=== PATIENT | male | born 1950 | race Caucasian/White ===

== ENCOUNTER 2018-06-15 23:26 | Emergency (ER) | payer MEDICARE ==
[~2018-06-15] VITALS: Ht 172.7 cm; Wt 73.5 kg
[2018-06-16] MEDS ORDERED: ONDANSETRON 4 MG/2 ML (SDV) Z0FRAN IVP ONE (00:15)
[2018-06-16] MEDS ORDERED: NS IV 1000 ML 1,000 ML IV SCH (00:15)
--- NOTE | 2018-06-16 00:27 | ED GI ---
General Chief Complaint: Abdominal/GI Problems Stated Complaint: VOMITING X2 HRS,SINUS INF Nursing Triage Note: pt states he has had a sinus infection for the past month, went to the dr today and placed on augmentin and prednisone. pt started vomiting this evening and has had approximately 10 episodes Sepsis Screen: No Definite Risk Source of Information: Patient Exam Limitations: No Limitations History of Present Illness Date Seen by Provider: Jun 16, 2018 Time Seen by Provider: 00:25 Initial Comments Sick for the past month cough and sinus drainage. Primary care physician prescribed Augmentin and prednisone today. He took one Augmentin tonight. then started vomiting. Has vomited 10 times. Stools are loose. Complains of crampy epigastric pain. No fevers or chills. History of low sodium. Allergies and Home Medications Allergies Coded Allergies: Sulfa (Sulfonamide Antibiotics) (Verified Allergy, Unknown, tachycardia, ) codeine (Verified Allergy, Unknown, tachycardia, 06/15/18) Home Medications Loratadine 10 Mg Tab, DAILY, (Reported) Patient Home Medication List Home Medication List Reviewed: Yes Review of Systems Review of Systems Constitutional: No fever; malaise, weakness Respiratory: No Symptoms Reported Cardiovascular: No Symptoms Reported Gastrointestinal: Abdominal Pain; Denies Diarrhea; Nausea, Vomiting Genitourinary: No Symptoms Reported Musculoskeletal: no symptoms reported, muscle pain Psychiatric/Neurological: Weakness All Other Systems Reviewed Negative Unless Noted: Yes Past Oyvxscz-Ufqero-Mavauw Hx Patient Social History Alcohol Use: Denies Use Smoking Status: Never a Smoker Recent Foreign Travel: No Contact w/Someone Who Travel: No Recent Infectious Disease Expo: No Physical Exam Vital Signs Vital Signs - First Documented 06/15/18 23:52 Temp 98.1 Pulse 99 Resp 16 B/P (MAP) 190/83 (118) Pulse Ox 97 Capillary Refill : Less Than 3 Seconds Height/Weight/BMI Height: 5'8.00" Weight: 162lbs. oz. 73.872978rm; BMI Method:Stated General Appearance: WD/WN, no apparent distress HEENT: PERRL/EOMI, pharynx normal Neck: supple Respiratory: lungs clear, normal breath sounds Cardiovascular: regular rate, rhythm, no edema, no gallop Gastrointestinal: non tender, soft Extremities: normal inspection Neurologic/Psychiatric: alert, normal mood/affect Skin: normal color, warm/dry Progress/Results/Core Measures Results/Orders Lab Results Laboratory Tests Test 06/15/18 00:30 Range/Units White Blood Count 16.3 H 4.3-11.0 10^3/uL Red Blood Count 4.09 L 4.35-5.85 10^6/uL Hemoglobin 12.7 L 13.3-17.7 G/DL Hematocrit 37 L 40-54 % Mean Corpuscular Volume 91 80-99 FL Mean Corpuscular Hemoglobin 31 25-34 PG Mean Corpuscular Hemoglobin Concent 34 32-36 G/DL Red Cell Distribution Width 12.8 10.0-14.5 % Platelet Count 282 130-400 10^3/uL Mean Platelet Volume 10.7 H 7.4-10.4 FL Neutrophils (%) (Auto) 86 H 42-75 % Lymphocytes (%) (Auto) 5 L 12-44 % Monocytes (%) (Auto) 7 0-12 % Eosinophils (%) (Auto) 1 0-10 % Basophils (%) (Auto) 0 0-10 % Neutrophils # (Auto) 14.0 H 1.8-7.8 X 10^3 Lymphocytes # (Auto) 0.8 L 1.0-4.0 X 10^3 Monocytes # (Auto) 1.2 H 0.0-1.0 X 10^3 Eosinophils # (Auto) 0.2 0.0-0.3 10^3/uL Basophils # (Auto) 0.1 0.0-0.1 10^3/uL Neutrophils % (Manual) 88 % Lymphocytes % (Manual) 4 % Monocytes % (Manual) 4 % Eosinophils % (Manual) 0 % Basophils % (Manual) 0 % Band Neutrophils 4 % Sodium Level 127 L 135-145 MMOL/L Potassium Level 3.5 L 3.6-5.0 MMOL/L Chloride Level 89 L 98-107 MMOL/L Carbon Dioxide Level 19 L 21-32 MMOL/L Anion Gap 19 H 5-14 MMOL/L Blood Urea Nitrogen 17 7-18 MG/DL Creatinine 0.85 0.60-1.30 MG/DL Estimat Glomerular Filtration Rate > 60 BUN/Creatinine Ratio 20 Glucose Level 134 H 70-105 MG/DL Calcium Level 8.4 L 8.5-10.1 MG/DL Corrected Calcium 8.2 L 8.5-10.1 MG/DL Total Bilirubin 0.5 0.1-1.0 MG/DL Aspartate Amino Transf (AST/SGOT) 16 5-34 U/L Alanine Aminotransferase (ALT/SGPT) 11 0-55 U/L Alkaline Phosphatase 55 40-136 U/L Total Protein 7.1 6.4-8.2 GM/DL Albumin 4.3 3.2-4.5 GM/DL Lipase 30 8-78 U/L My Orders Orders - ISIDRO JONES MD Comprehensive Metabolic Panel (06/15/18 23:56) Lipase (06/15/18 23:56) Saline Lock/Iv-Start (06/15/18 23:56) Acute Abd Series (06/15/18 23:56) Cbc With Automated Diff (06/15/18 23:56) Ns Iv 1000 Ml (Sodium Chloride 0.9%) (06/16/18 00:15) Ondansetron Injection (Zofran Injectio (06/16/18 00:15) Manual Differential (06/15/18 00:30) Medications Given in ED Current Medications Medications Dose Ordered Sig/Trace Route Start Time Stop Time Status Last Admin Dose Admin Ondansetron HCl 4 mg ONCE ONCE IVP 06/16/18 00:15 06/16/18 00:16 DC 06/16/18 00:33 4 MG Vital Signs/I&O 06/15/18 23:52 Temp 98.1 Pulse 99 Resp 16 B/P (MAP) 190/83 (118) Pulse Ox 97 Blood Pressure Mean: 118 Progress Progress Note : Time: 01:22 Progress Note She feels much better after IV fluids. Sodium was decreased but not critically. He has a elevated left hemidiaphragm on x-ray. I asked him about this and he does not recall her being told this before. He is not complaining of shortness of breath or abdominal pain now. I sent to follow-up with primary care physician for further workup on this. He is concerned about continuing Augmentin as he believes it made him ill. We will discontinue the Augmentin and start Zithromax. Advised to drink plenty of fluids, not water and see his doctor early next week Departure Impression Primary Impression: Nausea and vomiting Additional Impressions: Hyponatremia Sinusitis Disposition: HOME, SELF-CARE Condition: Stable Departure-Patient Inst. Decision time for Depature: 01:24 Referrals: NO,LOCAL PHYSICIAN (PCP/Family) Primary Care Physician Patient Instructions: Nausea and Vomiting, Adult Add. Discharge Instructions: Drink plenty of fluids. Stop Augmentin. Start Zithromax. you Were given the first dose in the emergency department. All discharge instructions reviewed with patient and/or family. Voiced understanding. Scripts Azithromycin (Zithromax) 250 Mg Tablet 250 MG PO DAILY, #4 TAB Prov: ISIDRO JONES MD 06/16/18 ISIDRO JONES MD Jun 16, 2018 00:27
[2018-06-16 00:30] VITALS: BP 178/79
[2018-06-16] MEDS ORDERED: AMOX-CLAV 875-125 MG TABLET (00:52)
[2018-06-16] MEDS ORDERED: LUMIGAN 0.01% EYE DROPS (00:52)
[2018-06-16] MEDS ORDERED: PREDNISONE 20 MG TABLET (00:52)
[2018-06-16] MEDS ORDERED: PANTOPRAZOLE SOD DR 40 MG TAB (00:52)
[2018-06-16] MEDS ORDERED: LEVOTHYROXINE 100 MCG TABLET (00:52)
[2018-06-16] MEDS ORDERED: LRT10T (00:54)
[2018-06-16 01:00] LABS: HEMATOCRIT 37 % (40-54); HEMOGLOBIN 12.7 G/DL (13.3-17.7); MEAN CORPUSCULAR HEMOGLOBIN 31 PG (25-34); MEAN CORPUSCULAR VOLUME 91 FL (80-99); WHITE BLOOD COUNT 16.3 10^3/uL (4.3-11.0)
[2018-06-16 01:01] LABS: BASOPHILS # (AUTO) 0.1 10^3/uL (0.0-0.1); BASOPHILS % (AUTO) 0 % (0-10); EOSINOPHILS # (AUTO) 0.2 10^3/uL (0.0-0.3); EOSINOPHILS % (AUTO) 1 % (0-10); LYMPHOCYTES # (AUTO) 0.8 X 10^3 (1.0-4.0); LYMPHOCYTES % (AUTO) 5 % (12-44); MEAN CORPUSCULAR HGB CONC 34 G/DL (32-36); MEAN PLATELET VOLUME 10.7 FL (7.4-10.4); MONOCYTES # (AUTO) 1.2 X 10^3 (0.0-1.0); MONOCYTES % (AUTO) 7 % (0-12); NEUTROPHILS % (AUTO) 86 % (42-75); PLATELET COUNT 282 10^3/uL (130-400); RED CELL DISTRIBUTION WIDTH 12.8 % (10.0-14.5)
[2018-06-16 01:02] LABS: BAND NEUTROPHILS 4 %; BASOPHILS % (MANUAL) 0 %; EOSINOPHILS % (MANUAL) 0 %; LYMPHOCYTES % (MANUAL) 4 %; MONOCYTES % (MANUAL) 4 %; NEUTROPHILS % (MANUAL) 88 %
[2018-06-16 01:06] LABS: ALKALINE PHOSPHATASE 55 U/L (40-136); BILIRUBIN,TOTAL 0.5 MG/DL (0.1-1.0); BUN/CREATININE RATIO 20; CALCIUM 8.4 MG/DL (8.5-10.1); CARBON DIOXIDE 19 MMOL/L (21-32); CHLORIDE 89 MMOL/L (98-107); CREATININE SERUM 0.85 MG/DL (0.60-1.30); GFR ESTIMATED > 60; GLUCOSE 134 MG/DL (70-105); POTASSIUM 3.5 MMOL/L (3.6-5.0); SODIUM 127 MMOL/L (135-145)
[2018-06-16 01:07] LABS: ALANINE AMINOTRANSFERASE 11 U/L (0-55); ALBUMIN 4.3 GM/DL (3.2-4.5); LIPASE 30 U/L (8-78); TOTAL PROTEIN 7.1 GM/DL (6.4-8.2)
[2018-06-16] MEDS ORDERED: AZIT250T PO (01:27)
[2018-06-16] MEDS ORDERED: AZITHROMYCIN 250 MG TAB (ZITHROMAX) PO ONE (01:30)
[2018-06-16 01:47] VITALS: BP 180/79
--- NOTE | 2018-06-16 07:28 | Diagnostic Imaging Report ---
EXAMINATION: Abdominal series with PA chest. INDICATION: Cough and sinus infection. Nausea and vomiting. FINDINGS: There is elevation of the left hemidiaphragm. There are no findings of alveolar consolidation. There is no large effusion. There is no pneumothorax. The heart size appears appropriate without evidence of failure. The bowel gas pattern appears nonobstructed. There are previous operative changes of L4-5 posterior lumbar interbody fusion. There are no unexpected abdominal calcifications. There is a prior left-sided iliac stent. There are degenerative endplate changes within the lower lumbar spine. IMPRESSION: 1. Elevated left hemidiaphragm without radiographic evidence of an acute cardiopulmonary process. 2. Nonobstructive bowel gas pattern. There is no evidence of free air. 3. Previous lumbar fusion and prior left iliac endovascular stent. Dictated by: Dictated on workstation # [id number]
--- OUTSIDE RECORDS SUMMARY | 2018-06-17 10:39 | XMS REPORT | Clinical Summary ---
Author Author Admin, QIE Organization [facility] Address Unknown Phone Unavailable Allergies, Adverse Reactions, Alerts Allergy Name Reaction Description Start Date Severity Status Provider CODEINE Critical Active Saranya Nguyen MD SULFA Critical Active Saranya Nguyen MD Conditions or Problems Problem Name Problem Code Onset Date Status Entry Date Provider Comment Standard Description Annotate Hypertension 401.9 Active Saranya Nguyen MD Unspecified essential hypertension Hypothyroidism 244.9 Active Saranya Nguyen MD Unspecified hypothyroidism Incomplete Bladder Emptying Active Saranya Nguyen MD Retention of urine, unspecified B [facility] Active Saranya Nguyen MD Hypertrophy ( benign) of prostate without urinary obstruction and other lower urinary tract ( LUTS) Medication List Medication Instructions Start Date Stop Date Generic Name NDC Status Provider Patient Instruction CYANOCOBALAMIN 1000 MCG/ML INJ SOLN 1 injection every 30 days CYANOCOBALAMIN 40863708963 Active Saranya Nguyen MD Active ALEVE 220 MG ORAL CAPS 1 cap by mputh daily NAPROXEN SODIUM 90866812477 Active Saranya Nguyen MD Active BIMATOPROST 0.03 % OPHTH SOLN 1 drop in both eyes daily BIMATOPROST 76644676337 Active Saranya Nguyen MD Active CLOTRIMAZOLE 1 % EXT CREA Apply to affected area twice daily CLOTRIMAZOLE 21806255802 Active Saranya Nguyen MD Active CLOTRIMAZOLE 1 % EXT CREA Apply to affected area twice daily CLOTRIMAZOLE 12267859694 Active Saranya Nguyen MD Active FLUTICASONE PROPIONATE 50 MCG/ACT SUSP 1 to 2 sprays each nostril daily 01/28 FLUTICASONE PROPIONATE 17425300101 Active Saranya Nguyen MD Active CYCLOBENZAPRINE HCL 10 MG TABS 1 tablet by mouth three times daily as needed for muscle spasm/pain CYCLOBENZAPRINE HCL 66487987603 Active Saranya Nguyen MD Active TRAMADOL HCL 50 MG TABS 1 po tid with ES Tylenol TRAMADOL HCL 41546734134 Active Saranya Nguyen MD Active MAGNESIUM 30 MG ORAL TABS 1 tab by mouth daily MAGNESIUM 34961205632 Active Saranya Nguyen MD Active PROMETHAZINE HCL 25 MG TABS 1 four times a day as needed for nausea/vomiting PROMETHAZINE HCL 55822973833 Active Saranya Nguyen MD Active POLYETHYLENE GLYCOL 3350 ORAL PACK 14 packets mixed with 64oz fluid POLYETHYLENE GLYCOL 3350 41319035348 Active Saranya Nguyen MD Active PANTOPRAZOLE SODIUM 40 MG TBEC 1 pill by mouth daily PANTOPRAZOLE SODIUM 38224011565 Active Saranya Nguyen MD Active LEVOTHYROXINE SODIUM 100 MCG TABS 1 pill by mouth daily for thyroid LEVOTHYROXINE SODIUM 45038755806 Active Saranya Nguyen MD Active MAGNESIUM OXIDE 400 MG CAPS 1 po bid MAGNESIUM OXIDE 88578166214 Active Saranya Nguyen MD Active Vital Signs Date Name Value Unit Range Description blood pressure, diastolic - 8462-4 80 mm[Hg] BP tai blood pressure, systolic - 8480-6 134 mm[Hg] BP sys height E&M - 8302-2 70 [in_us] Bdy height pulse rate E&M - 8867-4 75 /min Heart rate temperature E&M 98.4 [degF] Body temperature weight E&M - 3141-9 157 [lb_av] Weight Measured Encounters Code Encounter Date Provider Facility CPT-98936 Level 3 New Patient 10:25:41 CDT Saranya Nguyen MD [facility] Procedures Code Procedure Name Date Entry Date Standard Description CPT-04545 Bladder Scan 10:25:42 CDT
--- OUTSIDE RECORDS SUMMARY | 2018-06-17 10:39 | XMS REPORT | Continuity of Care Document ---
Author Author [facility] Address Unknown Phone Unavailable Allergies There is no data. Medications There is no data. Problems There is no data. Procedures There is no data. Results There is no data. Encounters ACCT No. Visit Date/Time Discharge Status Pt. Type Provider Facility Loc./Unit Complaint [id number] 02/04/2016 16:22:02 ACT Unknown [id number] 06/15/2018 23:38:00 ACT Emergency KAREN MAYORGA, ISIDRO Juarez [facility] FS VOMITING X2 HRS,SINUS INF [id number] 06/15/2018 13:20:00 [facility]
== END 2018-06-16 01:45 | disposition home or self-care (01) ==
LOC: ER FS 23:38
DX: R11.2 Nausea with vomiting, unspecified (principal); E87.1 Hypo-osmolality and hyponatremia; J32.9 Chronic sinusitis, unspecified; Z88.2 Allergy status to sulfonamides; Z88.5 Allergy status to narcotic agent
CPT/HCPCS: 36415; 74022; 80053; 83690; 85007; 85027

== ENCOUNTER 2018-09-10 17:17 | Emergency (ER) | payer MEDICARE ==
[~2018-09-10] VITALS: Ht 179.1 cm; Wt 73.0 kg
[~2018-09-10 17:17] MED LIST: AMOX-CLAV 875-125 MG TABLET; AZIT250T PO; LEVOTHYROXINE 100 MCG TABLET; LRT10T; LUMIGAN 0.01% EYE DROPS; PANTOPRAZOLE SOD DR 40 MG TAB; PREDNISONE 20 MG TABLET
--- OUTSIDE RECORDS SUMMARY | 2018-09-10 17:23 | XMS REPORT ---
Author Author TITO ROWLAND [facility] MA[facility] Address [address] [place] [address] Care Team Providers Care Hand Chain Maker Name Role Phone TITO ROWLAND Unavailable PROBLEMS Type Condition ICD9-CM Code [id number] Code Onset Dates Condition Status SNOMED Code Problem Tobacco use Z72.0 Sep, 0 699026174 Problem Hypothyroidism E03.9 Apr, 0 69850437 Problem Tobacco use 305.1 Sep, 0 765717523 Problem Chronic lumbar pain 724.2 Feb, 0 527974205 Problem Hyponatremia 276.1 Apr, 0 05152210 Problem Hypothyroidism 244.9 Apr, 0 88919798 Problem HTN (hypertension) 401.9 May, 0 78656796 Problem BPH (benign prostatic hyperplasia) 600.00 Apr, 0 604302914 Problem Chronic lumbar pain M54.5 Feb, 0 909372360 Problem Patellar bursitis 726.60 Dec, 0 306337485 Problem Patellar bursitis M70.50 Dec, 0 189859387 Problem Vitamin B12 deficiency E53.8 Active 976015168 Problem Acute pancreatitis 577.0 Jun, 0 201915635 Problem Hyponatremia E87.1 Apr, 0 95818266 Problem Vitamin B 12 deficiency E53.8 Active 237938600 Problem Vitamin B12 deficiency (non anemic) 266.2 Nov, 0 82195645 Problem BPH (benign prostatic hyperplasia) N40.0 Apr, 0 746434119 Problem HTN (hypertension) I10 May, 0 66549850 Problem Radicular leg pain 724.4 Feb, 0 216953906 Problem Acute pancreatitis K85.90 Jun, 0 650773261 Problem Vitamin B12 deficiency (non anemic) E53.8 Nov, 0 65703150 Problem Radicular leg pain M54.10 Feb, 0 44913114 ALLERGIES Substance Reaction Event Type Date Status Sulfamethoxazole nausea and vomiting Drug Allergy Jun, Active Codeine Phosphate arrhythmia Drug Allergy Jun, Active calvulanic acid nausea and vomiting Non Drug Allergy Jun, Active ENCOUNTERS Encounter [facility] Date [facility] [address] [address] Jun, Vitamin B [address] [address] Jun, Acute non-recurrent sinusitis, unspecified location J01.[address] [address] May, Vitamin B12 deficiency E53.[address] [address] Apr, [facility] [id number] [place] [address] Mar, [facility] [id number] [address] Oct, [facility] [id number] [address] Sep, [facility] [id number] [place] [address] Oct, IMMUNIZATIONS No Known Immunizations SOCIAL HISTORY Never Assessed REASON FOR VISIT fever and sinus, cough for month, chest soreness & vomited this morning because of cough & drainage PLAN OF CARE Activity Details Follow Up prn Reason: VITAL SIGNS Height 67.5 in 2018-06-15 Weight 168 lbs 2018-06-15 Temperature 97.5 degrees Fahrenheit 2018-06-15 BMI 25.92 kg/m2 2018-06-15 Blood pressure systolic 164 mmHg 2018-06-15 Blood pressure diastolic 104 mmHg 2018-06-15 MEDICATIONS Medication Instructions Dosage Frequency Start Date End Date Duration Status Lumigan 0.01 % Ophthalmic Once a day 1 drop into affected eye in the evening 24h Active Triamcinolone Acetonide 0.1 % Externally Twice a day 1 application to affected area 12h Active Protonix 40 MG Orally Once a day 1 tablet 24h 30 day(s) Active PredniSONE 20 mg Orally Once a day 2 tablets 24h Jun, 5 days Active Levothyroxine Sodium 100 MCG Orally Once a day 1 capsule on an empty stomach in the morning 24h 30 day(s) Active Augmentin 875-125 MG Orally every 12 hrs 1 tablet 12h Jun, 10 day(s) Active Aleve 220 MG Orally every 12 hrs 1 tablet with food or milk as needed 12h Active Flonase 50 MCG/ACT Nasally Once a day 1 spray in each nostril 24h 30 day(s) Active RESULTS No Results PROCEDURES Procedure Date Ordered Result Body Site [facility] VISIT NEW PATIENT June 15, 2018 INSTRUCTIONS MEDICATIONS ADMINISTERED No Known Medications MEDICAL (GENERAL) HISTORY Type Description Date Medical History hyponatremia Medical History Hypothyroidism Medical History hypertension Medical History chronic lumbar pain Medical History vitamin B12 deficiency Medical History does not retain sodium Surgical History Laser Eye Surgery Surgical History REPAIR ARM TENDON/MUSCLE 1984 Surgical History CYSTOSCOPY AND TREATMENT Surgical History tonsillectomy Surgical History colonoscopy 03/30/2009 Surgical History UPPR GI ENDOSCOPY, DIAGNOSIS 11/10/2010 Surgical History Cystourethroscopy 04/21/2014 Surgical History Lumbar Epidural 02/04/2014 Surgical History back surgery, low 10/11/2016 Hospitalization History surgeries Hospitalization History dehydration Hospitalization History heart issues
--- OUTSIDE RECORDS SUMMARY | 2018-09-10 17:24 | XMS REPORT | Continuity of Care Document ---
Author Organization Unknown Address Unknown Allergies Active Description Code Type Severity Reaction Onset Reported/Identified Relationship to Patient Clinical Status Yes codeine [id number] Drug Allergy Unknown tachycardia 06/15/2018 Yes Sulfa (Sulfonamide Antibiotics) [id number] Drug Allergy Unknown tachycardia 06/15/2018 Medications There is no data. Problems Date Dx Coded Attending Type Code Diagnosis Diagnosed By 06/16/2018 ISIDRO JONES MD Ot E87.1 HYPO-OSMOLALITY AND HYPONATREMIA 06/16/2018 ISIDRO JONES MD A Ot J32.9 CHRONIC SINUSITIS, UNSPECIFIED 06/16/2018 ISIDRO JONES MD A Ot R05 COUGH 06/16/2018 ISIDRO JONES MD A Ot R11.2 NAUSEA WITH VOMITING, UNSPECIFIED 06/16/2018 ISIDRO JONES MD A Ot Z88.2 ALLERGY STATUS TO SULFONAMIDES STATUS 06/16/2018 ISIDRO JONES MD A Ot Z88.5 ALLERGY STATUS TO NARCOTIC AGENT STATUS 06/18/2018 ISIDRO JONES MD A Ot E87.1 HYPO-OSMOLALITY AND HYPONATREMIA 06/18/2018 ISIDRO JONES MD A Ot J32.9 CHRONIC SINUSITIS, UNSPECIFIED 06/18/2018 ISIDRO JONES MD A Ot R05 COUGH 06/18/2018 ISIDRO JONES MD A Ot R11.2 NAUSEA WITH VOMITING, UNSPECIFIED 06/18/2018 ISIDRO JONES MD A Ot Z88.2 ALLERGY STATUS TO SULFONAMIDES STATUS 06/18/2018 SYED JONES MDNT A Ot Z88.5 ALLERGY STATUS TO NARCOTIC AGENT STATUS 07/07/2018 ISIDRO JONES MD A Ot E87.1 HYPO-OSMOLALITY AND HYPONATREMIA 07/07/2018 ISIDRO JONES MD A Ot J32.9 CHRONIC SINUSITIS, UNSPECIFIED 07/07/2018 ISIDRO JONES MD A Ot R05 COUGH 07/07/2018 ISIDRO JONES MD A Ot R11.2 NAUSEA WITH VOMITING, UNSPECIFIED 07/07/2018 ISIDRO JONES MD A Ot Z88.2 ALLERGY STATUS TO SULFONAMIDES STATUS 07/07/2018 ISIDRO JONES MD Ot Z88.5 ALLERGY STATUS TO NARCOTIC AGENT STATUS Procedures There is no data. Results Test Result Range Complete blood count (CBC) with automated white blood cell (WBC) differential - 06/15/18 00:30 Blood leukocytes automated count (number/volume) 16.3 10*3/uL 4.3-11.0 Blood erythrocytes automated count (number/volume) 4.09 10*6/uL 4.35-5.85 Venous blood hemoglobin measurement (mass/volume) 12.7 g/dL 13.3-17.7 Blood hematocrit (volume fraction) 37 % 40-54 Automated erythrocyte mean corpuscular volume 91 [foz_us] 80-99 Automated erythrocyte mean corpuscular hemoglobin (mass per erythrocyte) 31 pg 25-34 Automated erythrocyte mean corpuscular hemoglobin concentration measurement (mass/volume) 34 g/dL 32-36 Automated erythrocyte distribution width ratio 12.8 % 10.0- 14.5 Automated blood platelet count (count/volume) 282 10*3/uL 130-400 Automated blood platelet mean volume measurement 10.7 [foz_us] 7.4-10.4 Automated blood neutrophils/100 leukocytes 86 % 42-75 Automated blood lymphocytes/100 leukocytes 5 % 12-44 Blood monocytes/100 leukocytes 7 % 0-12 Automated blood eosinophils/100 leukocytes 1 % 0-10 Automated blood basophils/100 leukocytes 0 % 0-10 Blood neutrophils automated count (number/volume) 14.0 10*3 1.8-7.8 Blood lymphocytes automated count (number/volume) 0.8 10*3 1.0-4.0 Blood monocytes automated count (number/volume) 1.2 10*3 0.0- 1.0 Automated eosinophil count 0.2 10*3/uL 0.0-0.3 Automated blood basophil count (count/volume) 0.1 10*3/uL 0.0-0.1 Blood manual differential performed detection - 06/15/18 00:30 Blood monocytes/100 leukocytes 4 % NRG Manual blood segmented neutrophils/100 leukocytes 88 % NRG Blood band neutrophils/100 leukocytes 4 % NRG Manual blood lymphocytes/100 leukocytes 4 % NRG Manual eosinophils/100 leukocytes in nose 0 % NRG Manual blood basophils/100 leukocytes 0 % NRG Comprehensive metabolic panel - 06/15/18 00:30 Serum or plasma sodium measurement (moles/volume) 127 mmol/L 135-145 Serum or plasma potassium measurement (moles/volume) 3.5 mmol/L 3.6-5.0 Serum or plasma chloride measurement (moles/volume) 89 mmol/L 98-107 Carbon dioxide 19 mmol/L 21-32 Serum or plasma anion gap determination (moles/volume) 19 mmol/L 5-14 Serum or plasma urea nitrogen measurement (mass/volume) 17 mg/dL 7-18 Serum or plasma creatinine measurement (mass/volume) 0.85 mg/dL 0.60-1.30 Serum or plasma urea nitrogen/creatinine mass ratio 20 NRG Serum or plasma creatinine measurement with calculation of estimated glomerular filtration rate > NRG Serum or plasma glucose measurement (mass/volume) 134 mg/dL 70-105 Serum or plasma calcium measurement (mass/volume) 8.4 mg/dL 8.5-10.1 Serum or plasma total bilirubin measurement (mass/volume) 0.5 mg/dL 0.1-1.0 Serum or plasma alkaline phosphatase measurement (enzymatic activity/volume) 55 U/L 40-136 Serum or plasma aspartate aminotransferase measurement (enzymatic activity/volume) 16 U/L 5-34 Serum or plasma alanine aminotransferase measurement (enzymatic activity/volume) 11 U/L 0-55 Serum or plasma protein measurement (mass/volume) 7.1 g/dL 6.4-8.2 Serum or plasma albumin measurement (mass/volume) 4.3 g/dL 3.2-4.5 CALCIUM CORRECTED 8.2 mg/dL 8.5-10.1 Lipase - 06/15/18 00:30 Lipase 30 U/L 8-78 Encounters ACCT No. Visit Date/Time Discharge Status Pt. Type Provider Facility Loc./Unit Complaint [id number] 02/04/2016 16:22:02 ACT Unknown [id number] 06/15/2018 23:38:00 06/16/2018 01:45:00 DIS Emergency KAREN MAYORGA, ISIDRO Juarez [facility] ER FS VOMITING X2 HRS,SINUS INF [id number] 07/16/2018 16:45:00 07/16/2018 23:59:59 CLS Outpatient [facility]
[2018-09-10 17:51] LABS: BILIRUBIN,URINE NEGATIVE (NEGATIVE); CLARITY,URINE CLEAR; COLOR,URINE YELLOW; GLUCOSE, URINE (UA) NEGATIVE (NEGATIVE); KETONES,URINE NEGATIVE (NEGATIVE); LEUKOCYTE ESTERASE ,URINE NEGATIVE (NEGATIVE); NITRITE,URINE NEGATIVE (NEGATIVE); PH,URINE 6.5 (5-9); PROTEIN,URINE NEGATIVE (NEGATIVE); UROBILINOGEN,URINE 0.2 MG/DL (NORMAL)
[2018-09-10 17:52] LABS: SQUAMOUS EPITHELIAL CELL,UR RARE /HPF
[2018-09-10 17:52] LABS: BASOPHILS # (AUTO) 0.1 10^3/uL (0.0-0.1); BASOPHILS % (AUTO) 1 % (0-10); EOSINOPHILS # (AUTO) 0.2 10^3/uL (0.0-0.3); EOSINOPHILS % (AUTO) 2 % (0-10); HEMATOCRIT 34 % (40-54); HEMOGLOBIN 11.8 G/DL (13.3-17.7); LYMPHOCYTES % (AUTO) 21 % (12-44); MEAN CORPUSCULAR HEMOGLOBIN 31 PG (25-34); MEAN CORPUSCULAR HGB CONC 35 G/DL (32-36); MEAN CORPUSCULAR VOLUME 89 FL (80-99); MEAN PLATELET VOLUME 10.2 FL (7.4-10.4); MONOCYTES # (AUTO) 1.1 X 10^3 (0.0-1.0); MONOCYTES % (AUTO) 11 % (0-12); NEUTROPHILS # (AUTO) 6.3 X 10^3 (1.8-7.8); NEUTROPHILS % (AUTO) 65 % (42-75); PLATELET COUNT 345 10^3/uL (130-400); RED CELL DISTRIBUTION WIDTH 12.8 % (10.0-14.5); WHITE BLOOD COUNT 9.7 10^3/uL (4.3-11.0)
[2018-09-10 18:22] LABS: CHLORIDE 83 MMOL/L (98-107); POTASSIUM 3.6 MMOL/L (3.6-5.0); SODIUM 122 MMOL/L (135-145)
[2018-09-10 18:23] LABS: ALANINE AMINOTRANSFERASE 9 U/L (0-55); ALKALINE PHOSPHATASE 62 U/L (40-136); BILIRUBIN,TOTAL 0.2 MG/DL (0.1-1.0); BUN/CREATININE RATIO 18; CARBON DIOXIDE 28 MMOL/L (21-32); CREATININE SERUM 0.84 MG/DL (0.60-1.30); GFR ESTIMATED > 60; GLUCOSE 130 MG/DL (70-105)
[2018-09-10 18:24] LABS: ALBUMIN 4.5 GM/DL (3.2-4.5)
[2018-09-10] MEDS ORDERED: NS IV 500 ML 500 ML IV ONE (18:44)
[2018-09-10] MEDS ORDERED: NS IV 1000 ML 1,000 ML IV SCH (18:44)
--- NOTE | 2018-09-10 18:46 | ED General ---
General Chief Complaint: Dizziness/Syncope Stated Complaint: HIGH BP, DIZZY, SOB Nursing Triage Note: Pt arrived by private vehicle with chief complaint of dizziness, high blood pressure and dehydrated. Pt stated he felt faint around 0800 but it went away. He has history of being deydrated in the past with low sodium and potassium, but that is normal, because he has problems keeping them up. Pt stated has been dizzy, nausea and SOB. He stated checked blood pressure at home a couple times and was high. Nursing Sepsis Screen: No Definite Risk Source of Information: Patient Exam Limitations: No Limitations History of Present Illness Date Seen by Provider: September 10, 2018 Time Seen by Provider: 18:35 Initial Comments The patient presents to ER by private conveyance with his significant other and chief complaint that he feels like he is gotten dehydrated lately. He's been working out in the yard a lot and he's been feeling more lightheaded shaky weak and tired. He has a history of chronic hyponatremia usually running between 120 and 130. His last visit he ran 127. He says he can only tell when it's getting low and comes the ER get some IV fluids and usually feels much better. He has no fevers chills nausea vomiting diarrhea syncopal episodes loss of consciousness cough shortness of breath. He does have a history of emphysema but he quit smoking back in the middle of last year and has not been using any inhaler since. He denies any wheezing stridor or productive cough. Allergies and Home Medications Allergies Coded Allergies: Sulfa (Sulfonamide Antibiotics) (Verified Allergy, Unknown, tachycardia, 06/15/18) codeine (Verified Allergy, Unknown, tachycardia, 06/15/18) Home Medications Azithromycin 250 Mg Tablet, 250 MG PO DAILY Prescribed by: ISIDRO JONES on 06/16/18 0127 Loratadine 10 Mg Tab, DAILY, (Reported) Patient Home Medication List Home Medication List Reviewed: Yes Review of Systems Review of Systems Constitutional: No chills, No diaphoresis EENTM: No ear discharge, No hearing loss, No ear pain Respiratory: No cough, No short of breath Cardiovascular: No chest pain, No edema Gastrointestinal: No constipation, No diarrhea Genitourinary: No discharge, No dysuria Musculoskeletal: No back pain, No joint pain Past Pldxbrt-Xzliex-Xelsqs Hx Patient Social History Alcohol Use: Occasionally Uses Number of Drinks Today: GG Alcohol Beverage of Choice: Whiskey Recreational Drug Use: No Smoking Status: Former Smoker 2nd Hand Smoke Exposure: No Recent Foreign Travel: No Contact w/Someone Who Travel: No Recent Infectious Disease Expo: No Recent Hopitalizations: No Physical Abuse: No Sexual Abuse: No Mistreated: No Fear: No Seasonal Allergies Seasonal Allergies: No Past Medical History Respiratory: No Cardiac: No Neurological: No Genitourinary: No Esophagitis Musculoskeletal: No Endocrine: Yes Hypothyroidsim HEENT: No Cancer: No Psychosocial: No Integumentary: No Blood Disorders: No Adverse Reaction/Blood Tranf: No Physical Exam Vital Signs Vital Signs - First Documented 09/10/18 17:25 Temp 98.2 Pulse 106 Resp 24 B/P (MAP) 167/83 (111) Pulse Ox 99 O2 Delivery Room Air Capillary Refill : Less Than 3 Seconds Height, Weight, BMI Height: 5'10.50" Weight: 161lbs. 0oz. [id number]; BMI Method:Stated General Appearance: No Apparent Distress, WD/WN, Anxious Eyes: Bilateral Eye Normal Inspection, Bilateral Eye PERRL, Bilateral Eye EOMI HEENT: PERRL/EOMI, TMs Normal, Normal ENT Inspection, Pharynx Normal; No Moist Mucous Membranes (mildly dry) Neck: Full Range of Motion, Normal Inspection Respiratory: Lungs Clear, Normal Breath Sounds, No Accessory Muscle Use, No Respiratory Distress Cardiovascular: Regular Rate, Rhythm, No Edema, Normal Peripheral Pulses Extremity: Normal Capillary Refill, Normal Inspection, No Pedal Edema Neurologic/Psychiatric: Alert, Oriented x3, No Motor/Sensory Deficits, Normal Mood/Affect Skin: Normal Color, Warm/Dry Progress/Results/Core Measures Suspected Sepsis Recent Fever Within 48 Hours: No Infection Criteria Present: None New/Unexplained Altered Menta: No Sepsis Screen: No Definite Risk SIRS Temperature:98.2 Pulse: 106 Respiratory Rate: 24 Laboratory Tests 09/10/18 17:34: White Blood Count 9.7 Blood Pressure 167 /83 Mean: 111 Laboratory Tests 09/10/18 17:34: Creatinine 0.84, Platelet Count 345, Total Bilirubin 0.2 Results/Orders Lab Results Laboratory Tests Test 09/10/18 17:34 09/10/18 17:38 Range/Units White Blood Count 9.7 4.3-11.0 10^3/uL Red Blood Count 3.78 L 4.35-5.85 10^6/uL Hemoglobin 11.8 L 13.3-17.7 G/DL Hematocrit 34 L 40-54 % Mean Corpuscular Volume 89 80-99 FL Mean Corpuscular Hemoglobin 31 25-34 PG Mean Corpuscular Hemoglobin Concent 35 32-36 G/DL Red Cell Distribution Width 12.8 10.0-14.5 % Platelet Count 345 130-400 10^3/uL Mean Platelet Volume 10.2 7.4-10.4 FL Neutrophils (%) (Auto) 65 42-75 % Lymphocytes (%) (Auto) 21 12-44 % Monocytes (%) (Auto) 11 0-12 % Eosinophils (%) (Auto) 2 0-10 % Basophils (%) (Auto) 1 0-10 % Neutrophils # (Auto) 6.3 1.8-7.8 X 10^3 Lymphocytes # (Auto) 2.0 1.0-4.0 X 10^3 Monocytes # (Auto) 1.1 H 0.0-1.0 X 10^3 Eosinophils # (Auto) 0.2 0.0-0.3 10^3/uL Basophils # (Auto) 0.1 0.0-0.1 10^3/uL Sodium Level 122 *L 135-145 MMOL/L Potassium Level 3.6 3.6-5.0 MMOL/L Chloride Level 83 L 98-107 MMOL/L Carbon Dioxide Level 28 21-32 MMOL/L Anion Gap 11 5-14 MMOL/L Blood Urea Nitrogen 15 7-18 MG/DL Creatinine 0.84 0.60-1.30 MG/DL Estimat Glomerular Filtration Rate > 60 BUN/Creatinine Ratio 18 Glucose Level 130 H 70-105 MG/DL Calcium Level 9.0 8.5-10.1 MG/DL Corrected Calcium 8.6 8.5-10.1 MG/DL Total Bilirubin 0.2 0.1-1.0 MG/DL Aspartate Amino Transf (AST/SGOT) 17 5-34 U/L Alanine Aminotransferase (ALT/SGPT) 9 0-55 U/L Alkaline Phosphatase 62 40-136 U/L Total Protein 7.0 6.4-8.2 GM/DL Albumin 4.5 3.2-4.5 GM/DL Urine Color YELLOW Urine Clarity CLEAR Urine pH 6.5 5-9 Urine Specific [place] 1.010 L 1.016-1.022 Urine Protein NEGATIVE NEGATIVE Urine Glucose (UA) NEGATIVE NEGATIVE Urine Ketones NEGATIVE NEGATIVE Urine Nitrite NEGATIVE NEGATIVE Urine Bilirubin NEGATIVE NEGATIVE Urine Urobilinogen 0.2 NORMAL MG/DL Urine Leukocyte Esterase NEGATIVE NEGATIVE Urine RBC (Auto) NEGATIVE NEGATIVE Urine RBC NONE /HPF Urine WBC NONE /HPF Urine Squamous Epithelial Cells RARE /HPF Urine Crystals NONE /LPF Urine Bacteria NONE /HPF Urine Casts NONE /LPF Urine Mucus NEGATIVE /LPF Urine Culture Indicated NO My Orders Orders - DONOVAN FRANCO Ed Iv/Invasive Line Start (09/10/18 18:44) Ns Iv 500 Ml (Sodium Chloride 0.9%) (09/10/18 18:44) Ns Iv 1000 Ml (Sodium Chloride 0.9%) (09/10/18 18:44) Medications Given in ED Current Medications Medications Dose Ordered Sig/Trace Route Start Time Stop Time Status Last Admin Dose Admin Sodium Chloride 500 ml @ 0 mls/hr Q0M ONCE IV 09/10/18 18:44 09/10/18 18:46 DC 09/10/18 19:42 999 MLS/HR Vital Signs/I&O 09/10/18 17:25 Temp 98.2 Pulse 106 Resp 24 B/P (MAP) 167/83 (111) Pulse Ox 99 O2 Delivery Room Air Capillary Refill : Less Than 3 Seconds Blood Pressure Mean: 111 Progress Note : Time: 20:16 Progress Note After the 1500 no liter fluid bolus patient is feeling much better walking around having no near-syncope dizziness or lightheadedness. He feels ready to discharge home. Departure Impression Primary Impression: Dehydration, mild Additional Impression: Chronic hyponatremia Disposition: 01 HOME, SELF-CARE Condition: Stable Departure-Patient Inst. Decision time for Depature: 20:17 Referrals: PATRICIA DANIEL MD (PCP/Family) Primary Care Physician Patient Instructions: Dehydration, Adult (DC) Add. Discharge Instructions: Continue to drink fluids such as sports drinks and plan to follow up with primary care in the next 1-2 weeks to review your findings. All discharge instructions reviewed with patient and/or family. Voiced understanding. DONOVAN FRANCO September 10, 2018 18:46
--- NOTE | 2018-09-10 18:55 | NUR ---
Report given to STEFANI Emery at this time. Care was transferred.
[2018-09-10 20:33] VITALS: BP 178/91
== END 2018-09-10 20:33 | disposition home or self-care (01) ==
LOC: EDUNIT# 17:17 → ER FS 17:19
DX: E86.0 Dehydration (principal); E87.1 Hypo-osmolality and hyponatremia; J43.9 Emphysema, unspecified; E03.9 Hypothyroidism, unspecified; Z88.2 Allergy status to sulfonamides; Z88.5 Allergy status to narcotic agent; Z87.891 Personal history of nicotine dependence
CPT/HCPCS: 36415; 80053; 81000; 85025; 96360

== ENCOUNTER 2018-11-03 20:46 | Emergency (ER) | payer MEDICARE | END 2018-11-04 01:07 | disposition home or self-care (01) | LOC: ER FS 11-04 01:07 ==

== ENCOUNTER → 2018-11-29 | Outpatient (CLI) | payer MEDICARE ==
[~2018-11-29] MED LIST changes: +CATHETER FLUSH 10 ML SYR IV PRN; +HOLD METFORMIN - RECEIVED CONTRAST 20 ML VIAL IV SCH; +IOHEXOL 350 MG/ML 100 ML (OMNIPAQUE 350) VIAL IV ONE; +NS 100 ML (IVPB) BAG IV ONE
--- NOTE | 2018-11-29 10:54 | Diagnostic Imaging Report ---
PROCEDURE: CT chest with contrast only. TECHNIQUE: Multiple contiguous axial images were obtained through the chest after administration of intravenous contrast. Auto Exposure Controls were utilized during the CT exam to meet ALARA standards for radiation dose reduction. INDICATION: Chronic hyponatremia with SIADH and pneumonia. COMPARISON: No prior CT chest study is available for comparison. FINDINGS: No axillary lymphadenopathy is detected. No mediastinal or hilar lymphadenopathy is detected. No pericardial or pleural fluid is seen. Left hemidiaphragm is elevated. There are significant centrilobular emphysematous changes in both lungs. No parenchymal mass is identified. There is biapical pleural parenchymal scarring. No infiltrates are seen. Central airways appear to be patent. Upper abdomen is unremarkable. IMPRESSION: Centrilobular emphysematous changes. No acute feature is detected. Dictated by: Dictated on workstation # [id number]
== END ==
LOC: RAD FS 10:00
PROVIDERS: ATTEND Family Medicine
DX: J43.2 Centrilobular emphysema (principal); E22.2 Syndrome of inappropriate secretion of antidiuretic hormone; J18.1 Lobar pneumonia, unspecified organism; Z87.891 Personal history of nicotine dependence
CPT/HCPCS: 71260

== ENCOUNTER → 2019-06-04 | Outpatient (CLI) | payer MEDICARE ==
[~2019-06-04] MED LIST changes: -CATHETER FLUSH 10 ML SYR IV PRN; -HOLD METFORMIN - RECEIVED CONTRAST 20 ML VIAL IV SCH; -IOHEXOL 350 MG/ML 100 ML (OMNIPAQUE 350) VIAL IV ONE; -NS 100 ML (IVPB) BAG IV ONE
[2019-06-04 09:14] LABS: BILIRUBIN,URINE NEGATIVE (NEGATIVE); CLARITY,URINE CLEAR; COLOR,URINE YELLOW; GLUCOSE, URINE (UA) NEGATIVE (NEGATIVE); KETONES,URINE NEGATIVE (NEGATIVE); LEUKOCYTE ESTERASE ,URINE NEGATIVE (NEGATIVE); NITRITE,URINE NEGATIVE (NEGATIVE); PH,URINE 5.5 (5-9); PROTEIN,URINE NEGATIVE (NEGATIVE); SQUAMOUS EPITHELIAL CELL,UR RARE /HPF
[2019-06-04 09:34] LABS: ALBUMIN 4.7 GM/DL (3.2-4.5); BUN/CREATININE RATIO 19; CALCIUM 9.6 MG/DL (8.5-10.1); CARBON DIOXIDE 27 MMOL/L (21-32); CHLORIDE 88 MMOL/L (98-107); CREATININE SERUM 0.88 MG/DL (0.60-1.30); GFR ESTIMATED > 60; GLUCOSE 122 MG/DL (70-105); MAGNESIUM 1.6 MG/DL (1.6-2.4); POTASSIUM 4.1 MMOL/L (3.6-5.0); SODIUM 128 MMOL/L (135-145)
[2019-06-04 14:58] LABS: PHOSPHORUS 3.5 MG/DL (2.3-4.7); URIC ACID 4.5 MG/DL (2.6-7.2)
[2019-06-04 15:03] LABS: URINE CREATININE FOR RATIO 65 MG/DL (30-125); URINE PROTEIN FOR RATIO ONLY < 6 MG/DL (6-12)
[2019-06-07 07:33] LABS: URINE IMMUNOFIXATION W/ INTERP Complete
== END ==
LOC: LAB FS 08:31
PROVIDERS: ATTEND Internal Medicine Nephrology
DX: I12.9 Hypertensive chronic kidney disease with stage 1 through stage 4 chronic kidney disease, or unspecified chronic kidney disease (principal); N18.9 Chronic kidney disease, unspecified; E03.9 Hypothyroidism, unspecified; E87.1 Hypo-osmolality and hyponatremia; Z68.23 Body mass index [BMI] 23.0-23.9, adult
CPT/HCPCS: 36415; 80069; 81000; 82436; 82570; 83735; 83930; 83935; 84133; 84155; 84156; 84165; 84300; 84443; 84550; 86335

== ENCOUNTER → 2019-09-02 | Outpatient (CLI) | payer MEDICARE ==
[2019-09-02 09:27] LABS: BUN/CREATININE RATIO 20; CARBON DIOXIDE 26 MMOL/L (21-32); CHLORIDE 89 MMOL/L (98-107); CREATININE SERUM 0.94 MG/DL (0.60-1.30); GFR ESTIMATED > 60; POTASSIUM 4.1 MMOL/L (3.6-5.0); SODIUM 127 MMOL/L (135-145)
[2019-09-02 09:28] LABS: ALANINE AMINOTRANSFERASE 9 U/L (0-55); ALBUMIN 4.4 GM/DL (3.2-4.5); ALKALINE PHOSPHATASE 72 U/L (40-136); BILIRUBIN,TOTAL 0.4 MG/DL (0.1-1.0); CALCIUM 9.3 MG/DL (8.5-10.1); GLUCOSE 116 MG/DL (70-105); TOTAL PROTEIN 7.1 GM/DL (6.4-8.2)
== END ==
LOC: LAB FS 08:41
PROVIDERS: ATTEND Family Medicine
DX: I10 Essential (primary) hypertension (principal); E03.9 Hypothyroidism, unspecified
CPT/HCPCS: 36415; 80053; 84443

== ENCOUNTER → 2019-12-02 | Outpatient (CLI) | payer MEDICARE ==
[2019-12-02 09:35] LABS: CLARITY,URINE CLEAR; COLOR,URINE YELLOW; GLUCOSE, URINE (UA) NEGATIVE (NEGATIVE); KETONES,URINE NEGATIVE (NEGATIVE); NITRITE,URINE NEGATIVE (NEGATIVE); PROTEIN,URINE NEGATIVE (NEGATIVE)
[2019-12-02 09:36] LABS: BACTERIA,URINE NEGATIVE /HPF; BILIRUBIN,URINE NEGATIVE (NEGATIVE); LEUKOCYTE ESTERASE ,URINE NEGATIVE (NEGATIVE); SQUAMOUS EPITHELIAL CELL,UR RARE /HPF; WBC,URINE RARE /HPF
[2019-12-02 14:59] LABS: PHOSPHORUS 3.7 MG/DL (2.3-4.7)
[2019-12-02 15:02] LABS: URIC ACID 3.3 MG/DL (2.6-7.2)
[2019-12-02 15:22] LABS: URINE CREATININE FOR RATIO 42 MG/DL (30-125)
[2019-12-02 15:23] LABS: URINE PROTEIN FOR RATIO ONLY < 6 MG/DL (6-12)
[2019-12-02 19:48] LABS: ALBUMIN 4.5 GM/DL (3.2-4.5); CALCIUM 9.9 MG/DL (8.5-10.1); CARBON DIOXIDE 25 MMOL/L (21-32); CHLORIDE 89 MMOL/L (98-107); CREATININE SERUM 0.93 MG/DL (0.60-1.30); GFR ESTIMATED > 60; GLUCOSE 114 MG/DL (70-105); POTASSIUM 4.4 MMOL/L (3.6-5.0); SODIUM 125 MMOL/L (135-145)
[2019-12-02 20:04] LABS: BUN/CREATININE RATIO 18
== END ==
LOC: LAB FS 08:53
PROVIDERS: ATTEND Internal Medicine Nephrology
DX: I12.9 Hypertensive chronic kidney disease with stage 1 through stage 4 chronic kidney disease, or unspecified chronic kidney disease (principal); N18.3 Chronic kidney disease, stage 3 (moderate); E03.9 Hypothyroidism, unspecified; E87.1 Hypo-osmolality and hyponatremia
CPT/HCPCS: 36415; 80069; 81000; 82436; 82565; 82570; 83930; 83935; 84133; 84156; 84300; 84443; 84520; 84550

== ENCOUNTER 2019-12-07 20:01 | Emergency (ER) | payer MEDICARE ==
[~2019-12-07] VITALS: Ht 182.8 cm; Wt 69.5 kg
--- NOTE | 2019-12-07 20:06 | ED Neurological Problem ---
General Chief Complaint: Neurological Problems Stated Complaint: SEIZURE ACTIVITY History of Present Illness Date Seen by Provider: Dec 07, 2019 Time Seen by Provider: 20:06 Initial Comments 69-year-old male presents with tremors. Patient has known chronic low sodium. He thinks that his sodiums drop today. He reports he was outside in the heat by the day he did drink a beer today and it was 20 ounces. He comes in to get some IV fluids and had a sodium checked. He has no nausea vomiting fevers chills or other systemic complaints. Allergies and Home Medications Allergies Coded Allergies: Sulfa (Sulfonamide Antibiotics) (Verified Allergy, Unknown, tachycardia, 06/15/18) codeine (Verified Allergy, Unknown, tachycardia, 06/15/18) Home Medications Azithromycin 250 Mg Tablet, 250 MG PO DAILY Prescribed by: ISIDRO JONES on 06/16/18 0127 Loratadine 10 Mg Tab, DAILY, (Reported) Patient Home Medication List Home Medication List Reviewed: Yes Review of Systems Review of Systems Constitutional: No chills, No diaphoresis, No dizziness, No fever Respiratory: no symptoms reported Cardiovascular: no symptoms reported Gastrointestinal: no symptoms reported Musculoskeletal: see HPI Skin: no symptoms reported Psychiatric/Neurological: See HPI Past Nthqskl-Bqajux-Kwbego Hx Past Med/Social Hx: Reviewed Nursing Past Med/Soc Hx Patient Social History Alcohol Beverage of Choice: Whiskey 2nd Hand Smoke Exposure: No Recent Foreign Travel: No Contact w/Someone Who Travel: No Recent Hopitalizations: No Seasonal Allergies Seasonal Allergies: No Past Medical History Surgeries: No Respiratory: No Cardiac: Yes Hypertension Neurological: No Genitourinary: No Gastrointestinal: Yes Gastroesophageal Reflux, Esophagitis Musculoskeletal: No Endocrine: Yes Hypothyroidsim HEENT: Yes Glaucoma Cancer: No Psychosocial: No Integumentary: No Blood Disorders: No Adverse Reaction/Blood Tranf: No Physical Exam Vital Signs Vital Signs - First Documented 12/07/19 20:29 Temp 36.3 Pulse 112 Resp 16 B/P (MAP) 193/86 (121) Pulse Ox 99 O2 Delivery Room Air Capillary Refill : Height, Weight, BMI Height: 5'9.00" Weight: 160lbs. 0oz. 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, alert, normal mood/affect, oriented x 3 Motor/Sensory: other (mild coarse tremor bilateral hands right greater than left) Skin: normal color, warm/dry Progress/Results/Core Measures Results/Orders Lab Results Laboratory Tests Test 12/07/19 20:15 Range/Units White Blood Count 12.4 H 4.3-11.0 10^3/uL Red Blood Count 3.89 L 4.35-5.85 10^6/uL Hemoglobin 11.5 L 13.3-17.7 G/DL Hematocrit 34 L 40-54 % Mean Corpuscular Volume 86 80-99 FL Mean Corpuscular Hemoglobin 30 25-34 PG Mean Corpuscular Hemoglobin Concent 34 32-36 G/DL Red Cell Distribution Width 12.6 10.0-14.5 % Platelet Count 360 130-400 10^3/uL Mean Platelet Volume 10.9 H 7.4-10.4 FL Neutrophils (%) (Auto) 71 42-75 % Lymphocytes (%) (Auto) 16 12-44 % Monocytes (%) (Auto) 10 0-12 % Eosinophils (%) (Auto) 2 0-10 % Basophils (%) (Auto) 1 0-10 % Neutrophils # (Auto) 8.8 H 1.8-7.8 X 10^3 Lymphocytes # (Auto) 2.0 1.0-4.0 X 10^3 Monocytes # (Auto) 1.2 H 0.0-1.0 X 10^3 Eosinophils # (Auto) 0.2 0.0-0.3 10^3/uL Basophils # (Auto) 0.1 0.0-0.1 10^3/uL Sodium Level 121 *L 135-145 MMOL/L Potassium Level 4.3 3.6-5.0 MMOL/L Chloride Level 85 L 98-107 MMOL/L Carbon Dioxide Level 22 21-32 MMOL/L Anion Gap 14 5-14 MMOL/L Blood Urea Nitrogen 20 H 7-18 MG/DL Creatinine 1.06 0.60-1.30 MG/DL Estimat Glomerular Filtration Rate > 60 BUN/Creatinine Ratio 19 Glucose Level 163 H 70-105 MG/DL Calcium Level 9.6 8.5-10.1 MG/DL Serum Alcohol < 10 <10 MG/DL My Orders Orders - MORENO CHAN DO Basic Metabolic Panel (12/07/19 20:15) Cbc With Automated Diff (12/07/19 20:15) Alcohol (12/07/19 20:15) Ns Iv 1000 Ml (Sodium Chloride 0.9%) (12/07/19 20:15) Ed Iv/Invasive Line Start (12/07/19 20:15) Vital Signs/I&O 12/07/19 20:29 Temp 36.3 Pulse 112 Resp 16 B/P (MAP) 193/86 (121) Pulse Ox 99 O2 Delivery Room Air Progress Progress Note : Time: 20:50 Progress Note pt with chronic low sodium, pt states normal around 127. pt likely mild dehydration due to being out in heat at pool all day. pt feeling better following IV fluids. pt ready to be discharged home. Departure Impression Primary Impression: Dehydration with hyponatremia Additional Impression: Chronic hyponatremia Disposition: 01 HOME, SELF-CARE Condition: Stable Departure-Patient Inst. Referrals: PATRICIA DANIEL MD (PCP/Family) Primary Care Physician Patient Instructions: Hyponatremia (DC), Dehydration, Adult (DC) Add. Discharge Instructions: follow up with your pcp next week to recheck sodium All discharge instructions reviewed with patient and/or family. Voiced understanding. MORENO CHAN DO Dec 07, 2019 20:06
[2019-12-07] MEDS ORDERED: NS IV 1000 ML 1,000 ML IV STA (20:15)
[2019-12-07 20:26] LABS: HEMATOCRIT 34 % (40-54); HEMOGLOBIN 11.5 G/DL (13.3-17.7); MEAN CORPUSCULAR HEMOGLOBIN 30 PG (25-34); MEAN CORPUSCULAR HGB CONC 34 G/DL (32-36); MEAN CORPUSCULAR VOLUME 86 FL (80-99); PLATELET COUNT 360 10^3/uL (130-400); RED CELL DISTRIBUTION WIDTH 12.6 % (10.0-14.5); WHITE BLOOD COUNT 12.4 10^3/uL (4.3-11.0)
[2019-12-07 20:27] LABS: BASOPHILS # (AUTO) 0.1 10^3/uL (0.0-0.1); BASOPHILS % (AUTO) 1 % (0-10); EOSINOPHILS # (AUTO) 0.2 10^3/uL (0.0-0.3); EOSINOPHILS % (AUTO) 2 % (0-10); LYMPHOCYTES % (AUTO) 16 % (12-44); MEAN PLATELET VOLUME 10.9 FL (7.4-10.4); MONOCYTES # (AUTO) 1.2 X 10^3 (0.0-1.0); MONOCYTES % (AUTO) 10 % (0-12); NEUTROPHILS # (AUTO) 8.8 X 10^3 (1.8-7.8); NEUTROPHILS % (AUTO) 71 % (42-75)
[2019-12-07 20:42] LABS: BUN/CREATININE RATIO 19; CALCIUM 9.6 MG/DL (8.5-10.1); CARBON DIOXIDE 22 MMOL/L (21-32); CHLORIDE 85 MMOL/L (98-107); CREATININE SERUM 1.06 MG/DL (0.60-1.30); GFR ESTIMATED > 60; GLUCOSE 163 MG/DL (70-105); POTASSIUM 4.3 MMOL/L (3.6-5.0); SODIUM 121 MMOL/L (135-145)
[2019-12-07 21:00] VITALS: BP 192/96
== END 2019-12-07 21:00 | disposition home or self-care (01) ==
LOC: EDUNIT# 20:01 → ER FS 20:04
DX: E86.0 Dehydration (principal); E87.1 Hypo-osmolality and hyponatremia; Z88.5 Allergy status to narcotic agent; Z88.2 Allergy status to sulfonamides
CPT/HCPCS: 36415; 80048; 85025; 99283; G0480; 80320

== ENCOUNTER → 2019-12-11 | Outpatient (CLI) | payer MEDICARE ==
[2019-12-11 09:03] LABS: POTASSIUM 4.2 MMOL/L (3.6-5.0); SODIUM 119 MMOL/L (135-145)
[2019-12-11 09:04] LABS: BUN/CREATININE RATIO 12; CALCIUM 9.7 MG/DL (8.5-10.1); CARBON DIOXIDE 25 MMOL/L (21-32); CHLORIDE 82 MMOL/L (98-107); CREATININE SERUM 1.13 MG/DL (0.60-1.30); GFR ESTIMATED > 60; GLUCOSE 129 MG/DL (70-105)
== END ==
LOC: LAB FS 08:08
PROVIDERS: ATTEND Family Medicine
DX: E87.1 Hypo-osmolality and hyponatremia (principal); J30.2 Other seasonal allergic rhinitis
CPT/HCPCS: 36415; 80048

== ENCOUNTER → 2020-01-07 | Outpatient (CLI) | payer MEDICARE ==
[2020-01-07 09:35] LABS: BUN/CREATININE RATIO 20; CARBON DIOXIDE 28 MMOL/L (21-32); CHLORIDE 88 MMOL/L (98-107); CREATININE SERUM 1.04 MG/DL (0.60-1.30); GFR ESTIMATED > 60; SODIUM 126 MMOL/L (135-145)
== END ==
LOC: LAB FS 08:42
PROVIDERS: ATTEND Internal Medicine Nephrology
DX: I12.9 Hypertensive chronic kidney disease with stage 1 through stage 4 chronic kidney disease, or unspecified chronic kidney disease (principal); E87.1 Hypo-osmolality and hyponatremia; E03.9 Hypothyroidism, unspecified; N18.4 Chronic kidney disease, stage 4 (severe)
CPT/HCPCS: 36415; 80051; 82565; 84520

== ENCOUNTER → 2020-01-27 | Outpatient (CLI) | payer MEDICARE ==
[2020-01-27 13:11] LABS: ALANINE AMINOTRANSFERASE 10 U/L (0-55); ALBUMIN 4.4 GM/DL (3.2-4.5); ALKALINE PHOSPHATASE 79 U/L (40-136); BILIRUBIN,TOTAL 0.3 MG/DL (0.1-1.0); BUN/CREATININE RATIO 19; CALCIUM 9.8 MG/DL (8.5-10.1); CARBON DIOXIDE 25 MMOL/L (21-32); CHLORIDE 88 MMOL/L (98-107); CREATININE SERUM 0.94 MG/DL (0.60-1.30); GFR ESTIMATED > 60; GLUCOSE 114 MG/DL (70-105); POTASSIUM 4.7 MMOL/L (3.6-5.0); SODIUM 126 MMOL/L (135-145); TOTAL PROTEIN 7.3 GM/DL (6.4-8.2)
== END ==
LOC: LAB FS 11:17
PROVIDERS: ATTEND Family Medicine
DX: E87.1 Hypo-osmolality and hyponatremia (principal); R56.9 Unspecified convulsions
CPT/HCPCS: 36415; 80053

== ENCOUNTER → 2020-02-03 | Outpatient (CLI) | payer MEDICARE ==
[2020-02-03 12:05] LABS: POTASSIUM 4.7 MMOL/L (3.6-5.0)
[2020-02-03 12:06] LABS: CREATININE SERUM 1.2 MG/DL (0.60-1.30)
== END ==
LOC: LAB FS 11:06
PROVIDERS: ATTEND Internal Medicine Nephrology
DX: I12.9 Hypertensive chronic kidney disease with stage 1 through stage 4 chronic kidney disease, or unspecified chronic kidney disease (principal); N18.9 Chronic kidney disease, unspecified; E87.1 Hypo-osmolality and hyponatremia; E03.9 Hypothyroidism, unspecified
CPT/HCPCS: 36415; 80051; 82565; 84520

== ENCOUNTER → 2020-03-02 | Outpatient (CLI) | payer MEDICARE ==
[2020-03-02 09:36] LABS: HEMATOCRIT 33 % (40-54); HEMOGLOBIN 11.2 G/DL (13.3-17.7); MEAN CORPUSCULAR HEMOGLOBIN 30 PG (25-34); MEAN CORPUSCULAR HGB CONC 34 G/DL (32-36); MEAN CORPUSCULAR VOLUME 88 FL (80-99); WHITE BLOOD COUNT 7.9 10^3/uL (4.3-11.0)
[2020-03-02 09:37] LABS: BASOPHILS # (AUTO) 0.1 10^3/uL (0.0-0.1); BASOPHILS % (AUTO) 1 % (0-10); EOSINOPHILS # (AUTO) 0.2 10^3/uL (0.0-0.3); EOSINOPHILS % (AUTO) 3 % (0-10); LYMPHOCYTES # (AUTO) 1.7 X 10^3 (1.0-4.0); LYMPHOCYTES % (AUTO) 21 % (12-44); MEAN PLATELET VOLUME 11.9 FL (7.4-10.4); MONOCYTES # (AUTO) 0.8 X 10^3 (0.0-1.0); MONOCYTES % (AUTO) 10 % (0-12); NEUTROPHILS % (AUTO) 64 % (42-75); PLATELET COUNT 360 10^3/uL (130-400)
[2020-03-02 10:24] LABS: CHLORIDE 90 MMOL/L (98-107); POTASSIUM 4.5 MMOL/L (3.6-5.0); SODIUM 124 MMOL/L (135-145)
[2020-03-02 10:25] LABS: ALANINE AMINOTRANSFERASE 10 U/L (0-55); ALBUMIN 4.5 GM/DL (3.2-4.5); ALKALINE PHOSPHATASE 88 U/L (40-136); BILIRUBIN,TOTAL 0.3 MG/DL (0.1-1.0); BUN/CREATININE RATIO 24; CALCIUM 9.2 MG/DL (8.5-10.1); CARBON DIOXIDE 24 MMOL/L (21-32); CREATININE SERUM 0.96 MG/DL (0.60-1.30); GFR ESTIMATED > 60; GLUCOSE 112 MG/DL (70-105); TOTAL PROTEIN 7.3 GM/DL (6.4-8.2)
[2020-03-02 14:54] LABS: TRIGLYCERIDES 162 MG/DL (<150); VLDL CHOLESTEROL 32 MG/DL (5-40)
[2020-03-02 14:59] LABS: CHOLESTEROL 242 MG/DL (< 200)
[2020-03-02 15:00] LABS: HDL CHOLESTEROL 53 MG/DL (40-60)
== END ==
LOC: LAB FS 08:19
PROVIDERS: ATTEND Family Medicine
DX: I10 Essential (primary) hypertension (principal); E03.9 Hypothyroidism, unspecified; E87.1 Hypo-osmolality and hyponatremia; E53.8 Deficiency of other specified B group vitamins; R56.9 Unspecified convulsions
CPT/HCPCS: 36415; 80053; 80061; 82607; 84443; 85025

== ENCOUNTER → 2020-03-16 | Outpatient (CLI) | payer MEDICARE ==
[2020-03-16 10:09] LABS: CLARITY,URINE CLEAR; COLOR,URINE YELLOW; PH,URINE 6.5 (5-9)
[2020-03-16 10:10] LABS: BILIRUBIN,URINE NEGATIVE (NEGATIVE); GLUCOSE, URINE (UA) NEGATIVE (NEGATIVE); KETONES,URINE NEGATIVE (NEGATIVE); LEUKOCYTE ESTERASE ,URINE NEGATIVE (NEGATIVE); NITRITE,URINE NEGATIVE (NEGATIVE); PROTEIN,URINE NEGATIVE (NEGATIVE)
[2020-03-16 15:11] LABS: PHOSPHORUS 3.2 MG/DL (2.3-4.7); URIC ACID 3.5 MG/DL (2.6-7.2)
[2020-03-16 16:02] LABS: BUN/CREATININE RATIO 20; CARBON DIOXIDE 25 MMOL/L (21-32); CHLORIDE 91 MMOL/L (98-107); CREATININE SERUM 0.99 MG/DL (0.60-1.30); GFR ESTIMATED > 60; GLUCOSE 116 MG/DL (70-105); POTASSIUM 4.1 MMOL/L (3.6-5.0); SODIUM 128 MMOL/L (135-145)
[2020-03-16 16:03] LABS: ALBUMIN 4.4 GM/DL (3.2-4.5); MAGNESIUM 1.8 MG/DL (1.6-2.4)
== END ==
LOC: LAB FS 08:43
PROVIDERS: ATTEND Internal Medicine Nephrology
DX: I12.9 Hypertensive chronic kidney disease with stage 1 through stage 4 chronic kidney disease, or unspecified chronic kidney disease (principal); E87.1 Hypo-osmolality and hyponatremia; E03.9 Hypothyroidism, unspecified; Z68.21 Body mass index [BMI] 21.0-21.9, adult
CPT/HCPCS: 36415; 80069; 81000; 83735; 83935; 84550

== ENCOUNTER → 2020-04-06 | Outpatient (CLI) | payer MEDICARE ==
[2020-04-06 10:15] LABS: HEMOGLOBIN 11.6 G/DL (13.3-17.7); WHITE BLOOD COUNT 7.5 10^3/uL (4.3-11.0)
[2020-04-06 10:16] LABS: MEAN PLATELET VOLUME 11.5 FL (7.4-10.4)
[2020-04-06 10:24] LABS: COLOR,URINE YELLOW
[2020-04-06 10:25] LABS: BACTERIA,URINE NEGATIVE /HPF; BILIRUBIN,URINE NEGATIVE (NEGATIVE); GLUCOSE, URINE (UA) NEGATIVE (NEGATIVE); KETONES,URINE NEGATIVE (NEGATIVE); LEUKOCYTE ESTERASE ,URINE NEGATIVE (NEGATIVE); NITRITE,URINE NEGATIVE (NEGATIVE); PROTEIN,URINE NEGATIVE (NEGATIVE); SQUAMOUS EPITHELIAL CELL,UR RARE /HPF
[2020-04-06 10:26] LABS: URINE OTHER SPERM 4+ /HPF
[2020-04-06 11:15] LABS: ALBUMIN 4.4 GM/DL (3.2-4.5); MAGNESIUM 1.7 MG/DL (1.6-2.4)
[2020-04-06 11:18] LABS: CALCIUM 9.4 MG/DL (8.5-10.1); CREATININE SERUM 1.21 MG/DL (0.60-1.30); POTASSIUM 5.1 MMOL/L (3.6-5.0)
[2020-04-06 11:19] LABS: ALBUMIN 4.4 GM/DL (3.2-4.5)
[2020-04-06 15:17] LABS: PHOSPHORUS 3.9 MG/DL (2.3-4.7); URIC ACID 3.6 MG/DL (2.6-7.2)
== END ==
LOC: LAB FS 09:38
PROVIDERS: ATTEND Internal Medicine Nephrology
DX: I12.9 Hypertensive chronic kidney disease with stage 1 through stage 4 chronic kidney disease, or unspecified chronic kidney disease (principal); E87.1 Hypo-osmolality and hyponatremia; E03.9 Hypothyroidism, unspecified
CPT/HCPCS: 36415; 80069; 81000; 82040; 82436; 83735; 83930; 83935; 84133; 84300; 84550; 85027

== ENCOUNTER → 2020-05-18 | Outpatient (CLI) | payer MEDICARE ==
[2020-05-18 09:51] LABS: BACTERIA,URINE NEGATIVE /HPF; BILIRUBIN,URINE NEGATIVE (NEGATIVE); CLARITY,URINE CLEAR; COLOR,URINE YELLOW; GLUCOSE, URINE (UA) NEGATIVE (NEGATIVE); KETONES,URINE NEGATIVE (NEGATIVE); LEUKOCYTE ESTERASE ,URINE NEGATIVE (NEGATIVE); NITRITE,URINE NEGATIVE (NEGATIVE); PROTEIN,URINE NEGATIVE (NEGATIVE); SQUAMOUS EPITHELIAL CELL,UR RARE /HPF
[2020-05-18 15:27] LABS: URINE CREATININE FOR RATIO 46 MG/DL (30-125); URINE PROTEIN FOR RATIO ONLY < 6 MG/DL (6-12)
== END ==
LOC: LAB FS 08:38
PROVIDERS: ATTEND Internal Medicine Nephrology
DX: E87.1 Hypo-osmolality and hyponatremia (principal); I12.9 Hypertensive chronic kidney disease with stage 1 through stage 4 chronic kidney disease, or unspecified chronic kidney disease; N18.9 Chronic kidney disease, unspecified; E03.9 Hypothyroidism, unspecified; E87.5 Hyperkalemia
CPT/HCPCS: 36415; 81000; 82088; 82436; 82570; 83935; 84133; 84156; 84244; 84300

== ENCOUNTER → 2020-06-09 | Outpatient (CLI) | payer MEDICARE ==
[2020-06-09 12:39] LABS: COLOR,URINE YELLOW
[2020-06-09 12:40] LABS: BACTERIA,URINE NEGATIVE /HPF; BILIRUBIN,URINE NEGATIVE (NEGATIVE); CLARITY,URINE CLEAR; GLUCOSE, URINE (UA) NEGATIVE (NEGATIVE); KETONES,URINE NEGATIVE (NEGATIVE); LEUKOCYTE ESTERASE ,URINE NEGATIVE (NEGATIVE); NITRITE,URINE NEGATIVE (NEGATIVE); PH,URINE 5.5 (5-9); PROTEIN,URINE NEGATIVE (NEGATIVE); SQUAMOUS EPITHELIAL CELL,UR RARE /HPF
[2020-06-09 12:43] LABS: HEMOGLOBIN 11.2 G/DL (13.3-17.7); MEAN PLATELET VOLUME 11.6 FL (7.4-10.4); WHITE BLOOD COUNT 8.4 10^3/uL (4.3-11.0)
[2020-06-09 13:14] LABS: ALBUMIN 4.5 GM/DL (3.2-4.5); BUN/CREATININE RATIO 22; CALCIUM 9.1 MG/DL (8.5-10.1); CARBON DIOXIDE 25 MMOL/L (21-32); CHLORIDE 92 MMOL/L (98-107); CREATININE SERUM 0.97 MG/DL (0.60-1.30); GFR ESTIMATED > 60; GLUCOSE 106 MG/DL (70-105); MAGNESIUM 1.6 MG/DL (1.6-2.4); POTASSIUM 4.5 MMOL/L (3.6-5.0); SODIUM 127 MMOL/L (135-145)
[2020-06-09 15:36] LABS: PHOSPHORUS 3.5 MG/DL (2.3-4.7); URIC ACID 3.6 MG/DL (2.6-7.2)
== END ==
LOC: LAB FS 11:21
PROVIDERS: ATTEND Internal Medicine Nephrology
DX: I12.9 Hypertensive chronic kidney disease with stage 1 through stage 4 chronic kidney disease, or unspecified chronic kidney disease (principal); E87.1 Hypo-osmolality and hyponatremia; E03.9 Hypothyroidism, unspecified; E87.5 Hyperkalemia; N18.9 Chronic kidney disease, unspecified
CPT/HCPCS: 36415; 80069; 81000; 82088; 82436; 83735; 83930; 83935; 84133; 84244; 84300; 84550; 85027

== ENCOUNTER → 2020-08-04 | Outpatient (CLI) | payer MEDICARE ==
[2020-08-04 10:49] LABS: BUN/CREATININE RATIO 20; CALCIUM 9.2 MG/DL (8.5-10.1); CARBON DIOXIDE 25 MMOL/L (21-32); CHLORIDE 91 MMOL/L (98-107); CREATININE SERUM 1.13 MG/DL (0.60-1.30); GFR ESTIMATED > 60; GLUCOSE 105 MG/DL (70-105); POTASSIUM 4.5 MMOL/L (3.6-5.0); SODIUM 127 MMOL/L (135-145)
== END ==
LOC: LAB FS 09:57
PROVIDERS: ATTEND Family Medicine
DX: E87.1 Hypo-osmolality and hyponatremia (principal)
CPT/HCPCS: 36415; 80048

== ENCOUNTER → 2020-08-04 | Outpatient (CLI) | payer MEDICARE ==
[2020-08-04 10:37] LABS: BACTERIA,URINE NEGATIVE /HPF; BILIRUBIN,URINE NEGATIVE (NEGATIVE); CLARITY,URINE CLEAR; COLOR,URINE YELLOW; GLUCOSE, URINE (UA) NEGATIVE (NEGATIVE); KETONES,URINE NEGATIVE (NEGATIVE); LEUKOCYTE ESTERASE ,URINE NEGATIVE (NEGATIVE); NITRITE,URINE NEGATIVE (NEGATIVE); PROTEIN,URINE NEGATIVE (NEGATIVE); SQUAMOUS EPITHELIAL CELL,UR RARE /HPF
[2020-08-04 15:36] LABS: URINE CREATININE FOR RATIO 46 MG/DL (30-125)
[2020-08-04 15:37] LABS: URINE PROTEIN FOR RATIO ONLY < 6 MG/DL (6-12)
== END ==
LOC: LAB FS 09:53
PROVIDERS: ATTEND Internal Medicine Nephrology
DX: I12.9 Hypertensive chronic kidney disease with stage 1 through stage 4 chronic kidney disease, or unspecified chronic kidney disease (principal); E87.1 Hypo-osmolality and hyponatremia; E87.5 Hyperkalemia; E03.9 Hypothyroidism, unspecified
CPT/HCPCS: 36415; 81000; 82088; 82436; 82570; 83935; 84133; 84156; 84244; 84300

== ENCOUNTER → 2020-10-20 | Outpatient (CLI) | payer MEDICARE ==
[2020-10-20 10:01] LABS: CLARITY,URINE CLEAR; COLOR,URINE YELLOW; GLUCOSE, URINE (UA) NEGATIVE (NEGATIVE); KETONES,URINE NEGATIVE (NEGATIVE); NITRITE,URINE NEGATIVE (NEGATIVE); PH,URINE 6.5 (5-9); PROTEIN,URINE NEGATIVE (NEGATIVE)
[2020-10-20 10:02] LABS: BACTERIA,URINE NEGATIVE /HPF; BILIRUBIN,URINE NEGATIVE (NEGATIVE); LEUKOCYTE ESTERASE ,URINE NEGATIVE (NEGATIVE); WBC,URINE RARE /HPF
[2020-10-20 13:31] LABS: BUN/CREATININE RATIO 14; CARBON DIOXIDE 25 MMOL/L (21-32); CHLORIDE 89 MMOL/L (98-107); CREATININE SERUM 1.06 MG/DL (0.60-1.30); GFR ESTIMATED > 60; POTASSIUM 4.3 MMOL/L (3.6-5.0); SODIUM 125 MMOL/L (135-145)
[2020-10-20 13:32] LABS: ALBUMIN 4.4 GM/DL (3.2-4.5); CALCIUM 9.2 MG/DL (8.5-10.1); GLUCOSE 96 MG/DL (70-105); MAGNESIUM 1.6 MG/DL (1.6-2.4)
[2020-10-20 15:23] LABS: PHOSPHORUS 3.2 MG/DL (2.3-4.7)
[2020-10-20 15:25] LABS: URIC ACID 3.6 MG/DL (2.6-7.2)
== END ==
LOC: LAB FS 09:14
PROVIDERS: ATTEND Internal Medicine Nephrology
DX: E87.1 Hypo-osmolality and hyponatremia (principal); I12.9 Hypertensive chronic kidney disease with stage 1 through stage 4 chronic kidney disease, or unspecified chronic kidney disease; N18.9 Chronic kidney disease, unspecified; G40.909 Epilepsy, unspecified, not intractable, without status epilepticus; E03.9 Hypothyroidism, unspecified; I73.9 Peripheral vascular disease, unspecified; Z68.23 Body mass index [BMI] 23.0-23.9, adult
CPT/HCPCS: 36415; 80069; 81000; 83735; 84550

== ENCOUNTER → 2020-11-03 | Outpatient (CLI) | payer MEDICARE ==
[2020-11-03 11:04] LABS: SODIUM 125 MMOL/L (135-145)
[2020-11-03 11:07] LABS: BUN/CREATININE RATIO 16; CALCIUM 9.4 MG/DL (8.5-10.1); CARBON DIOXIDE 25 MMOL/L (21-32); CHLORIDE 88 MMOL/L (98-107); CREATININE SERUM 1.06 MG/DL (0.60-1.30); GFR ESTIMATED > 60; GLUCOSE 110 MG/DL (70-105); POTASSIUM 4.9 MMOL/L (3.6-5.0)
== END ==
LOC: LAB FS 09:32
PROVIDERS: ATTEND Internal Medicine Nephrology
DX: E87.1 Hypo-osmolality and hyponatremia (principal)
CPT/HCPCS: 36415; 80048

== ENCOUNTER → 2020-11-26 | Outpatient (CLI) | payer MEDICARE ==
[2020-11-26 11:08] LABS: POTASSIUM 4.2 MMOL/L (3.6-5.0)
[2020-11-26 11:09] LABS: CREATININE SERUM 1.12 MG/DL (0.60-1.30)
[2020-11-26 11:10] LABS: ALBUMIN 4.5 GM/DL (3.2-4.5); BILIRUBIN,TOTAL 0.4 MG/DL (0.1-1.0); CALCIUM 9.2 MG/DL (8.5-10.1); TOTAL PROTEIN 7.2 GM/DL (6.4-8.2)
== END ==
LOC: LAB FS 09:34
PROVIDERS: ATTEND Family Medicine
DX: E03.9 Hypothyroidism, unspecified (principal); I10 Essential (primary) hypertension; R79.89 Other specified abnormal findings of blood chemistry
CPT/HCPCS: 36415; 80053; 80061; 82607; 84443

== ENCOUNTER → 2020-12-14 | Outpatient (CLI) | payer MEDICARE ==
[2020-12-14 10:43] LABS: POTASSIUM 4.5 MMOL/L (3.6-5.0)
[2020-12-14 10:44] LABS: ALBUMIN 4.4 GM/DL (3.2-4.5); CREATININE SERUM 1.09 MG/DL (0.60-1.30)
[2020-12-14 14:48] LABS: PHOSPHORUS 3.8 MG/DL (2.3-4.7)
== END ==
LOC: LAB FS 09:20
PROVIDERS: ATTEND Internal Medicine Nephrology
DX: E87.1 Hypo-osmolality and hyponatremia (principal); E87.5 Hyperkalemia; I10 Essential (primary) hypertension
CPT/HCPCS: 36415; 80069

== ENCOUNTER → 2021-01-18 | Outpatient (CLI) | payer MEDICARE ==
[2021-01-18 11:04] LABS: POTASSIUM 4.7 MMOL/L (3.6-5.0)
[2021-01-18 11:05] LABS: ALBUMIN 4.4 GM/DL (3.2-4.5); CALCIUM 9.2 MG/DL (8.5-10.1); MAGNESIUM 1.5 MG/DL (1.6-2.4)
[2021-01-18 11:15] LABS: BILIRUBIN,URINE NEGATIVE (NEGATIVE); CLARITY,URINE CLEAR; COLOR,URINE YELLOW; GLUCOSE, URINE (UA) NEGATIVE (NEGATIVE); KETONES,URINE NEGATIVE (NEGATIVE); LEUKOCYTE ESTERASE ,URINE NEGATIVE (NEGATIVE); NITRITE,URINE NEGATIVE (NEGATIVE); PH,URINE 6.5 (5-9); PROTEIN,URINE NEGATIVE (NEGATIVE)
[2021-01-18 12:20] LABS: BACTERIA,URINE NEGATIVE /HPF; HYALINE CASTS, URINE 0-2 /LPF; SQUAMOUS EPITHELIAL CELL,UR RARE /HPF; WBC,URINE RARE /HPF
[2021-01-18 15:07] LABS: PHOSPHORUS 3.5 MG/DL (2.3-4.7)
[2021-01-18 15:09] LABS: URIC ACID 3.7 MG/DL (2.6-7.2)
[2021-01-18 15:20] LABS: URINE CREATININE FOR RATIO 43 MG/DL (30-125)
[2021-01-18 15:21] LABS: URINE PROTEIN FOR RATIO ONLY < 6 MG/DL (6-12)
== END ==
LOC: LAB FS 10:08
PROVIDERS: ATTEND Internal Medicine Nephrology
DX: E87.1 Hypo-osmolality and hyponatremia (principal); I12.9 Hypertensive chronic kidney disease with stage 1 through stage 4 chronic kidney disease, or unspecified chronic kidney disease; G40.909 Epilepsy, unspecified, not intractable, without status epilepticus; E03.9 Hypothyroidism, unspecified; I73.9 Peripheral vascular disease, unspecified; Z68.23 Body mass index [BMI] 23.0-23.9, adult
CPT/HCPCS: 36415; 80069; 81000; 82436; 82570; 83735; 83935; 84133; 84156; 84300; 84550

== ENCOUNTER → 2021-05-04 | Outpatient (CLI) | payer MEDICARE ==
[2021-05-04 11:50] LABS: CALCIUM 8.9 MG/DL (8.5-10.1); CREATININE SERUM 1.18 MG/DL (0.60-1.30); POTASSIUM 4.2 MMOL/L (3.6-5.0)
[2021-05-04 15:05] LABS: URIC ACID 4.2 MG/DL (2.6-7.2)
== END ==
LOC: LAB FS 09:14
PROVIDERS: ATTEND Internal Medicine Nephrology
DX: E87.1 Hypo-osmolality and hyponatremia (principal); I12.9 Hypertensive chronic kidney disease with stage 1 through stage 4 chronic kidney disease, or unspecified chronic kidney disease; N18.9 Chronic kidney disease, unspecified; I73.9 Peripheral vascular disease, unspecified; Z68.23 Body mass index [BMI] 23.0-23.9, adult
CPT/HCPCS: 36415; 80048; 84550

== ENCOUNTER → 2021-06-08 | Outpatient (CLI) | payer MEDICARE ==
[2021-06-08 09:55] LABS: ALBUMIN 4.1 GM/DL (3.2-4.5); BILIRUBIN,TOTAL 0.3 MG/DL (0.1-1.0); CALCIUM 9.4 MG/DL (8.5-10.1); CREATININE SERUM 1.09 MG/DL (0.60-1.30); POTASSIUM 4.6 MMOL/L (3.6-5.0); TOTAL PROTEIN 7.5 GM/DL (6.4-8.2)
== END ==
LOC: LAB FS 08:46
PROVIDERS: ATTEND Family Medicine
DX: I10 Essential (primary) hypertension (principal); R73.9 Hyperglycemia, unspecified; E78.5 Hyperlipidemia, unspecified; E03.9 Hypothyroidism, unspecified
CPT/HCPCS: 36415; 80053; 80061; 83036; 84443

== ENCOUNTER → 2021-07-19 | Outpatient (CLI) | payer MEDICARE ==
[2021-07-19 09:13] LABS: BILIRUBIN,URINE NEGATIVE (NEGATIVE); CLARITY,URINE CLEAR; COLOR,URINE YELLOW; GLUCOSE, URINE (UA) TRACE (NEGATIVE); KETONES,URINE NEGATIVE (NEGATIVE); LEUKOCYTE ESTERASE ,URINE NEGATIVE (NEGATIVE); NITRITE,URINE NEGATIVE (NEGATIVE); PROTEIN,URINE NEGATIVE (NEGATIVE)
[2021-07-19 09:57] LABS: BACTERIA,URINE NEGATIVE /HPF; HYALINE CASTS, URINE RARE /LPF; RBC,URINE 0-2 /HPF; SQUAMOUS EPITHELIAL CELL,UR 0-2 /HPF; WBC,URINE 0-2 /HPF
[2021-07-19 10:15] LABS: ALBUMIN 4.3 GM/DL (3.2-4.5); CALCIUM 9.2 MG/DL (8.5-10.1); CREATININE SERUM 1.18 MG/DL (0.60-1.30); POTASSIUM 4.4 MMOL/L (3.6-5.0)
[2021-07-19 15:20] LABS: PHOSPHORUS 3.6 MG/DL (2.3-4.7)
[2021-07-19 15:22] LABS: URIC ACID 4.2 MG/DL (2.6-7.2)
[2021-07-19 15:31] LABS: URINE CREATININE FOR RATIO 56 MG/DL (30-125)
[2021-07-19 15:32] LABS: URINE PROTEIN FOR RATIO ONLY < 6 MG/DL (6-12)
== END ==
LOC: LAB FS 08:45
PROVIDERS: ATTEND Internal Medicine Nephrology
DX: E87.1 Hypo-osmolality and hyponatremia (principal); I12.9 Hypertensive chronic kidney disease with stage 1 through stage 4 chronic kidney disease, or unspecified chronic kidney disease; N18.9 Chronic kidney disease, unspecified; I73.9 Peripheral vascular disease, unspecified; Z68.23 Body mass index [BMI] 23.0-23.9, adult
CPT/HCPCS: 36415; 80069; 81000; 82436; 82570; 83735; 83935; 84133; 84156; 84300; 84550

== ENCOUNTER → 2021-09-06 | Outpatient (CLI) | payer MEDICARE ==
[2021-09-06 09:59] LABS: POTASSIUM 4.8 MMOL/L (3.6-5.0)
[2021-09-06 10:00] LABS: BILIRUBIN,TOTAL 0.4 MG/DL (0.1-1.0); CALCIUM 9.2 MG/DL (8.5-10.1); CREATININE SERUM 0.99 MG/DL (0.60-1.30)
[2021-09-06 10:01] LABS: ALBUMIN 4.3 GM/DL (3.2-4.5); TOTAL PROTEIN 7.4 GM/DL (6.4-8.2)
== END ==
LOC: LAB FS 08:51
PROVIDERS: ATTEND Family Medicine
DX: E78.5 Hyperlipidemia, unspecified (principal); E53.8 Deficiency of other specified B group vitamins; E03.9 Hypothyroidism, unspecified; Z76.0 Encounter for issue of repeat prescription
CPT/HCPCS: 36415; 80053; 80061; 84443

== ENCOUNTER → 2021-09-28 | Outpatient (CLI) | payer MEDICARE ==
[2021-09-28 11:58] LABS: BILIRUBIN,TOTAL 0.4 MG/DL (0.1-1.0); CALCIUM 9.4 MG/DL (8.5-10.1); CREATININE SERUM 1.11 MG/DL (0.60-1.30); POTASSIUM 4.7 MMOL/L (3.6-5.0); TOTAL PROTEIN 7.3 GM/DL (6.4-8.2)
[2021-09-28 11:59] LABS: ALBUMIN 4.5 GM/DL (3.2-4.5)
== END ==
LOC: LAB FS 08:44
PROVIDERS: ATTEND Family Medicine
DX: E03.9 Hypothyroidism, unspecified (principal); R73.9 Hyperglycemia, unspecified; Z00.01 Encounter for general adult medical examination with abnormal findings; E53.8 Deficiency of other specified B group vitamins; I10 Essential (primary) hypertension; E78.5 Hyperlipidemia, unspecified; E87.1 Hypo-osmolality and hyponatremia
CPT/HCPCS: 36415; 80053; 80061; 82607; 83036; 84443

== ENCOUNTER → 2021-11-01 | Outpatient (CLI) | payer MEDICARE ==
[2021-11-01 09:09] LABS: CALCIUM 9.5 MG/DL (8.5-10.1); CREATININE SERUM 1.15 MG/DL (0.60-1.30); POTASSIUM 4.5 MMOL/L (3.6-5.0)
[2021-11-01 15:06] LABS: URIC ACID 3.8 MG/DL (2.6-7.2)
== END ==
LOC: RAD FS 08:31
PROVIDERS: ATTEND Nurse Practitioner Family
DX: I12.9 Hypertensive chronic kidney disease with stage 1 through stage 4 chronic kidney disease, or unspecified chronic kidney disease (principal); N18.9 Chronic kidney disease, unspecified; E87.1 Hypo-osmolality and hyponatremia; E87.5 Hyperkalemia; I73.9 Peripheral vascular disease, unspecified; Z68.23 Body mass index [BMI] 23.0-23.9, adult
CPT/HCPCS: 36415; 80048; 84550

== ENCOUNTER → 2021-11-08 | Outpatient (CLI) | payer MEDICARE ==
[2021-11-08 11:49] LABS: POTASSIUM 4.6 MMOL/L (3.6-5.0)
[2021-11-08 11:50] LABS: CALCIUM 9.1 MG/DL (8.5-10.1); CREATININE SERUM 1.07 MG/DL (0.60-1.30)
== END ==
LOC: LAB FS 08:49
PROVIDERS: ATTEND Internal Medicine Nephrology
DX: E87.1 Hypo-osmolality and hyponatremia (principal)
CPT/HCPCS: 36415; 80048

== ENCOUNTER → 2021-11-15 | Outpatient (CLI) | payer MEDICARE ==
[2021-11-15 10:32] LABS: POTASSIUM 5.3 MMOL/L (3.6-5.0)
[2021-11-15 10:33] LABS: CALCIUM 9.7 MG/DL (8.5-10.1); CREATININE SERUM 1.41 MG/DL (0.60-1.30)
== END ==
LOC: LAB FS 09:27
PROVIDERS: ATTEND Internal Medicine Nephrology
DX: E87.1 Hypo-osmolality and hyponatremia (principal)
CPT/HCPCS: 36415; 80048

== ENCOUNTER → 2021-12-13 | Outpatient (CLI) | payer MEDICARE | LOC: LAB FS 09:21 | PROVIDERS: ATTEND Family Medicine | DX: E03.9 Hypothyroidism, unspecified (principal); E53.8 Deficiency of other specified B group vitamins; E78.5 Hyperlipidemia, unspecified; E87.1 Hypo-osmolality and hyponatremia; I10 Essential (primary) hypertension; R73.9 Hyperglycemia, unspecified; Z76.0 Encounter for issue of repeat prescription | CPT/HCPCS: 36415; 84443 ==

== ENCOUNTER → 2021-12-13 | Outpatient (CLI) | payer MEDICARE ==
[2021-12-13 10:51] LABS: CALCIUM 9.4 MG/DL (8.5-10.1); CREATININE SERUM 1.07 MG/DL (0.60-1.30); POTASSIUM 4.5 MMOL/L (3.6-5.0)
== END ==
LOC: LAB FS 09:27
PROVIDERS: ATTEND Internal Medicine Nephrology
DX: E87.1 Hypo-osmolality and hyponatremia (principal)
CPT/HCPCS: 36415; 80048

== ENCOUNTER → 2022-05-02 | Outpatient (CLI) | payer MEDICARE ==
--- NOTE | 2022-05-02 18:19 | Diagnostic Imaging Report ---
EXAMINATION: Thoracic spine radiograph EXAM DATE: 05/02/2022 2:53 PM COMPARISON: CT chest from 11/29/2018. HISTORY: Thoracic back pain. TECHNIQUE: Three views FINDINGS: There are redemonstrated multilevel thoracic compression deformities which are unchanged from prior CT on 11/29/2018, greatest at T5, T8, and L1. Disc spaces are preserved. There is mild multilevel thoracic spondylosis. IMPRESSION: 1. Chronic compression fractures without other acute osseous abnormality. Dictated by: Dictated on workstation # [id number]
== END ==
LOC: RAD FS 14:23
PROVIDERS: ATTEND Registered Nurse Emergency
DX: M48.54XA Collapsed vertebra, not elsewhere classified, thoracic region, initial encounter for fracture (principal)
CPT/HCPCS: 72072

== ENCOUNTER → 2022-06-06 | Outpatient (CLI) | payer MEDICARE ==
--- NOTE | 2022-06-06 17:23 | Diagnostic Imaging Report ---
INDICATION: Spondylosis without myelopathy or radiculopathy. COMPARISON: 06/16/2018 TECHNIQUE: 3 radiographs of the lumbar spine dated 06/06/2022. FINDINGS: Posterior decompression of L4 and L5 is noted with posterior fusion with bilateral posterior pedicle screws and interbody disc device present. No evidence of hardware complication. Bone graft material is also present at this location. Vascular stent graft overlying left pelvis is again seen. 5 lumbar type vertebral bodies are present. Chronic vertebral body height loss and superior endplate compression deformity of L1 is again identified. No evidence of a new vertebral body compression deformity. Very minimal retrolisthesis of L1 on L2 measuring 1 to 2 mm. No additional anterolisthesis or retrolisthesis. Severe disc space height loss at L5/S1. Mild disc space height loss at T12/L1 and L1/L2. No new fracture or dislocation. The sacroiliac joints are intact. Moderate background vascular calcifications. IMPRESSION: Postsurgical changes within the lower lumbar spine are again identified without hardware complication. Chronic compression deformity of L1 with mild scattered degenerative changes without acute osseous abnormality. Additional postsurgical and chronic findings as above. Dictated by: Dictated on workstation # [id number]
== END ==
LOC: RAD FS 16:31
PROVIDERS: ATTEND Family Medicine
DX: M47.816 Spondylosis without myelopathy or radiculopathy, lumbar region (principal); M43.8X6 Other specified deforming dorsopathies, lumbar region; Z98.1 Arthrodesis status
CPT/HCPCS: 72100